=== PATIENT | female | born 1985 | race Caucasian/White ===

== ENCOUNTER → 2019-06-19 | Outpatient (CLI) | payer OTHER ==
[~2019-06-19] MED LIST: AMOX500 PO; BCP; DICY20 PO; FLUSAL2505 IH; HYDACE5 PO; IBUP800; LOPE2C PO; OXYACE5T; PRED20 PO; PROCODE120 PO; PROM25 PO; PYRI100; Prilosec Otc20 MG; RXPROCODSY PO; Verotin-Gr Cap1 EACH; ZOLP5 PO
[2019-06-19 11:28] LABS: BASOPHILS ABSOLUTE AUTO 0.03 K/mm3 (0.00-0.23); BASOPHILS PERCENT AUTO 1 % (0-2); EOSINOPHILS ABSOLUTE AUTO 0.15 K/mm3 (0.00-0.68); EOSINOPHILS PERCENT AUTO 3 % (0-6); Hematocrit 43.4 % (33.0-51.0); Hemoglobin 13.8 g/dL (11.5-16.0); IMMATURE GRAN ABSOLUTE AUTO 0.02 K/mm3 (0.00-0.10); IMMATURE GRAN PERCENT AUTO 0 % (0-1); LYMPHOCYTES ABSOLUTE AUTO 1.44 K/mm3 (0.84-5.20); LYMPHOCYTES PERCENT AUTO 26 % (21-46); MONOCYTES ABSOLUTE AUTO 0.39 K/mm3 (0.16-1.47); MONOCYTES PERCENT AUTO 7 % (4-13); Mean Corpuscular HGB 29.5 pg (26.0-34.0); Mean Corpuscular HGB Conc 31.8 g/dL (31.5-36.5); Mean Corpuscular Volume 93 fL (80-100); NEUTROPHILS ABSOLUTE AUTO 3.52 K/mm3 (1.96-9.15); NEUTROPHILS PERCENT AUTO 64 % (41-73); Platelet Count 273 K/mm3 (150-400); RDW Standard Deviation 41.1 fL (35.1-46.3); Red Blood Cell Count 4.68 M/mm3 (3.80-5.20); White Blood Cell Count 5.55 K/mm3 (4.00-11.30)
[2019-06-19 11:45] LABS: Alanine Aminotransfer (ALT/SGP 29 U/L (12-78); Albumin/Globulin Ratio 1.1 (0.8-1.8); Alk Phos 86 U/L (50-136); Anion Gap 5 mmol/L (6-16); Aspartate Aminotrans (AST/SGOT 13 U/L (12-37); Bilirubin, Total 0.7 mg/dL (0.1-1.0); Blood Urea Nitrogen 15 mg/dL (8-24); Bun/Creatinine Ratio 23.8 (12.0-20.0); CO2, Blood 28 mmol/L (21-32); Calcium, Blood 9.2 mg/dL (8.5-10.1); Chloride, Blood 107 mmol/L (98-108); Creatinine, Blood 0.63 mg/dL (0.40-1.00); Globulin, Blood 3.8 g/dL (2.2-4.0); Glomerular Filtration Rate >60 (60-); Glucose, Blood 74 mg/dL (70-99); Potassium, Blood 3.9 mmol/L (3.5-5.5); Sodium, Blood 140 mmol/L (136-145); Total Protein, Blood 7.8 g/dL (6.4-8.2)
== END ==
LOC: LAB SHORT 11:20 → LAB 11:20
PROVIDERS: Nurse Practitioner
DX: R10.9 Unspecified abdominal pain (principal); R53.83 Other fatigue; R42 Dizziness and giddiness
CPT/HCPCS: 80053; 83690; 85025

== ENCOUNTER → 2020-02-18 | Outpatient (CLI) | payer BC | END | disposition home or self-care (01) | LOC: LAB 17:50 → LAB SHORT 17:50 | DX: O09.523 Supervision of elderly multigravida, third trimester (principal) | CPT/HCPCS: 87081; 87653 ==

== ENCOUNTER 2020-03-11 12:31 | Inpatient (IN) | payer BC ==
[~2020-03-11] VITALS: Ht 162.6 cm; Wt 156.0 kg
[2020-03-13] MEDS ORDERED: GABA300 PO (16:48)
[2020-03-13] MEDS ORDERED: ENZYMATIC DIGE1 EACH PO (16:49)
[2020-03-14 07:12] LABS: BASOPHILS ABSOLUTE AUTO 0.03 K/mm3 (0.00-0.23); BASOPHILS PERCENT AUTO 0 % (0-2); EOSINOPHILS ABSOLUTE AUTO 0.11 K/mm3 (0.00-0.68); EOSINOPHILS PERCENT AUTO 1 % (0-6); Hematocrit 37.8 % (33.0-51.0); Hemoglobin 12.3 g/dL (11.5-16.0); IMMATURE GRAN ABSOLUTE AUTO 0.23 K/mm3 (0.00-0.10); IMMATURE GRAN PERCENT AUTO 2 % (0-1); LYMPHOCYTES ABSOLUTE AUTO 1.88 K/mm3 (0.84-5.20); LYMPHOCYTES PERCENT AUTO 16 % (21-46); MONOCYTES ABSOLUTE AUTO 0.63 K/mm3 (0.16-1.47); MONOCYTES PERCENT AUTO 5 % (4-13); Mean Corpuscular HGB 28.7 pg (26.0-34.0); Mean Corpuscular HGB Conc 32.5 g/dL (31.5-36.5); Mean Corpuscular Volume 88 fL (80-100); Mean Platelet Volume 9.9 fL (9.1-12.4); NEUTROPHILS PERCENT AUTO 75 % (41-73); Platelet Count 245 K/mm3 (150-400); RDW Coefficient Variation 13.2 % (11.7-14.2); RDW Standard Deviation 41.9 fL (35.1-46.3); Red Blood Cell Count 4.29 M/mm3 (3.80-5.20); White Blood Cell Count 11.68 K/mm3 (4.00-11.30)
[2020-03-14] MEDS ORDERED: Percocet 5-3251 EACH PO (16:19)
[2020-03-14] MEDS ORDERED: IBUP800 PO (16:19)
--- NOTE | 2020-03-14 16:42 | NUR ---
RN ROUNDED TO HELP W/ . NB IN SCN. INSTRUCT/DEMO HAND EXPRESSION. INSTRUCTED PT TO HAND EXPRESS OR PUMP EVERY 2-3 HOURS FOR STIMULATION TO BRING IN MILK SUPPLY. INSTRUCTED PT TO DO SKIN TO SKIN IN SCN IF NB ABLE TO. PT VERBALIZED UNDERSTANDING, DENIES ANY FURTHER QUESTIONS OR CONCERNS.
[2020-03-15 05:44] LABS: Hematocrit 32.3 % (33.0-51.0); Hemoglobin 10.5 g/dL (11.5-16.0); Mean Corpuscular HGB 29.2 pg (26.0-34.0); Mean Corpuscular HGB Conc 32.5 g/dL (31.5-36.5); Mean Corpuscular Volume 90 fL (80-100); Mean Platelet Volume 9.3 fL (9.1-12.4); Platelet Count 188 K/mm3 (150-400); RDW Coefficient Variation 13.4 % (11.7-14.2); Red Blood Cell Count 3.59 M/mm3 (3.80-5.20); White Blood Cell Count 10.61 K/mm3 (4.00-11.30)
--- NOTE | 2020-03-15 09:00 | NUR ---
PT IN BED, PAS ON. PT VERY SWOLLEN, STATES SHE WAS SWOLLEN FOR 3 MONTHS AFTER HER LAT CHILD. SHE WAS PUT ON LASIX, WE DISCUSSED THE PRO CONS OF THAT MEDICATION WITH [facility]. PT WANT SO TRY TO [facility], AND HAS BEEN PUMPING. DECLINED THE MORNING DOSE OF LASIX AFTER TALKING ABOUT SIDE EFFECTS. ENCOURGED PT TO AMBULATE THIS AM, DISCUSSED SHOWER TIME, OFFERED 2 TIMES AFTER PAIN MEDS GIVEN. PT WASN'T SURE SHE WANTED TO TRY, RN ENCOURGED HER TO GIVE IT A TRY. PT UP TO SHOWER AT 0900. GODWIN WELL. RN ASSISTED, LINEN CHANGED. PT REPORTS FEELING BETTER AFTER SHOWERING. PLAN TO FINISH BREAKFAST, THEN HEAD TO NSY.
--- NOTE | 2020-03-15 11:03 | NUR ---
OF NOTE, PT HAS SOME MOBILY ISSUES DUE TO HER SIZE. RN HELPED ALOT WITH PT SELF CARE. REPORTS HAVING CONSTANT YEAST INFECTION ON BACK OF HER R KNEE AREA, CURRENTLY LOOKS INTACT AND DRY WITHOUT INFECTION. PT NOT ABLE TO REACH HER OWN PERINEIUM.
--- NOTE | 2020-03-15 15:30 | NUR ---
REPORT TO MARIA ISABEL KINCAID. PT SITTING UP IN CHAIR.
== END 2020-03-16 15:05 | disposition home or self-care (01) | DRG 785 ==
LOC: BC 03-14 05:51
PROVIDERS: ADMIT Obstetrics & Gynecology
PROC: 10D00Z1 Extraction of Products of Conception, Low, Open Approach (ICD-10-PCS; principal; 2020-03-14 07:30)
PROC: 0UT70ZZ Resection of Bilateral Fallopian Tubes, Open Approach (ICD-10-PCS; 2020-03-14 07:30)
DX: O32.1XX0 Maternal care for breech presentation, not applicable or unspecified (principal); O34.211 Maternal care for low transverse scar from previous cesarean delivery; O99.214 Obesity complicating childbirth; E66.01 Morbid (severe) obesity due to excess calories; Z3A.39 39 weeks gestation of pregnancy; Z37.0 Single live birth; Z30.2 Encounter for sterilization; O99.62 Diseases of the digestive system complicating childbirth; K66.0 Peritoneal adhesions (postprocedural) (postinfection)
CPT/HCPCS: 36415; 85025; 85027; 86850; 86900; 86901; A9270; J0690; J1885; J1940; J2405; J2590; J2765; J3010; J7120